=== PATIENT | female | born 1960 | race Caucasian/White ===

== ENCOUNTER 2018-08-09 06:47 | Emergency (ER) | payer MEDICAID ==
[~2018-08-09] VITALS: Ht 157.5 cm; Wt 72.8 kg
[~2018-08-09 06:47] MED LIST: CYCL-1 PO; DICL100G15 TOP; ESCI5TAB10; FERR325T28; HYDR-3964; LORA1TAB; LYR75C; METH-360 PO; OMEP-84; TRAZ-91
[2018-08-09] MEDS ORDERED: ketorolac tromethamine 15mg/ml inj. IV ONE (07:10)
[2018-08-09] MEDS ORDERED: proCHLORperazine 10 MG/2 ml inj IV ONE (07:10)
[2018-08-09] MEDS ORDERED: cyclobenzaprine 10mg tablet PO ONE ×2 (07:10→08:15)
[2018-08-09] MEDS ORDERED: normal saline 1000ML IV soln IVB ONE (07:25)
[2018-08-09] MEDS ORDERED: ketorolac trometh. 30mg/ml inj. IM ONE (07:45)
[2018-08-09] MEDS ORDERED: proCHLORperazine 10 MG/2 ml inj IM ONE (07:45)
[2018-08-09 08:19] VITALS: BP 168/99
== END 2018-08-09 08:24 | disposition home or self-care (01) ==
LOC: ER 06:48
DX: R51 Headache (principal); R11.10 Vomiting, unspecified; M19.90 Unspecified osteoarthritis, unspecified site; G89.29 Other chronic pain; F12.90 Cannabis use, unspecified, uncomplicated; F15.90 Other stimulant use, unspecified, uncomplicated; Z90.710 Acquired absence of both cervix and uterus; Z86.19 Personal history of other infectious and parasitic diseases; Z88.0 Allergy status to penicillin; Z79.899 Other long term (current) drug therapy
CPT/HCPCS: 96372; 99284; J0780; J1885

== ENCOUNTER 2018-11-26 19:34 | Emergency (ER) | payer MEDICAID ==
[~2018-11-26] VITALS: Ht 158.8 cm; Wt 70.0 kg
[2018-11-26 19:45] VITALS: BP 119/68
[2018-11-26] MEDS ORDERED: NAPR-56 PO (20:29)
[2018-11-26] MEDS ORDERED: HYDR-4383 PO (20:29)
[2018-11-26] MEDS ORDERED: naproxen 500mg tablet PO ONE (20:30)
[2018-11-26] MEDS ORDERED: HYDROcodone/acetaminophen 10/325mg tab PO ONE (20:30)
--- NOTE | 2018-11-27 11:27 | NUR ---
[facility] CALLED TO REPORT THAT PT HAS AN EXTENSIVE CURS REPORT AND HAS HAD RX FOR NARCOTIC BEING FILLED BY MULTIPLE MDs
== END 2018-11-26 20:52 | disposition home or self-care (01) ==
LOC: ER 19:35
DX: S52.591A Other fractures of lower end of right radius, initial encounter for closed fracture (principal); S60.221A Contusion of right hand, initial encounter; M19.90 Unspecified osteoarthritis, unspecified site; G89.29 Other chronic pain; F12.90 Cannabis use, unspecified, uncomplicated; F15.90 Other stimulant use, unspecified, uncomplicated; Z90.710 Acquired absence of both cervix and uterus; Z88.0 Allergy status to penicillin; Z79.899 Other long term (current) drug therapy; W19.XXXA Unspecified fall, initial encounter; Y93.89 Activity, other specified; Y92.89 Other specified places as the place of occurrence of the external cause; Y99.9 Unspecified external cause status
CPT/HCPCS: 29125; 73110; 99283

== ENCOUNTER 2018-12-05 13:02 | Outpatient (CLI) | payer MEDICAID ==
[2018-12-05 13:02] VITALS: BP 139/106
[~2018-12-05 13:02] MED LIST changes: +HYDR-4383 PO; +NAPR-56 PO
== END 2018-12-05 13:52 | disposition home or self-care (01) ==
LOC: ORTHO 13:02
PROVIDERS: ATTEND Nurse Practitioner Family
DX: M25.531 Pain in right wrist (principal); F12.90 Cannabis use, unspecified, uncomplicated; F15.90 Other stimulant use, unspecified, uncomplicated; Z90.710 Acquired absence of both cervix and uterus; Z88.0 Allergy status to penicillin; Z79.899 Other long term (current) drug therapy
CPT/HCPCS: A4590; G0463

== ENCOUNTER 2018-12-19 14:33 | Outpatient (CLI) | payer MEDICAID ==
[2018-12-19 14:34] VITALS: BP 119/83
== END 2018-12-19 15:22 | disposition home or self-care (01) ==
LOC: ORTHO 14:33
PROVIDERS: ATTEND Nurse Practitioner Family
DX: S52.591D Other fractures of lower end of right radius, subsequent encounter for closed fracture with routine healing (principal); S52.614D Nondisplaced fracture of right ulna styloid process, subsequent encounter for closed fracture with routine healing; G43.909 Migraine, unspecified, not intractable, without status migrainosus; F12.90 Cannabis use, unspecified, uncomplicated; F32.9 Major depressive disorder, single episode, unspecified; Z88.0 Allergy status to penicillin; W17.89XD Other fall from one level to another, subsequent encounter
CPT/HCPCS: 73110; 99213; A4590

== ENCOUNTER 2019-01-03 15:07 | Outpatient (CLI) | payer MEDICAID ==
[~2019-01-03 15:07] MED LIST changes: -NAPR-56 PO
[2019-01-03 15:13] VITALS: BP 133/73
== END 2019-01-03 15:52 | disposition home or self-care (01) ==
LOC: ORTHO 15:07
PROVIDERS: ATTEND Nurse Practitioner Family
DX: S52.591D Other fractures of lower end of right radius, subsequent encounter for closed fracture with routine healing (principal); S52.611D Displaced fracture of right ulna styloid process, subsequent encounter for closed fracture with routine healing; G43.909 Migraine, unspecified, not intractable, without status migrainosus; M19.90 Unspecified osteoarthritis, unspecified site; F12.90 Cannabis use, unspecified, uncomplicated; F32.9 Major depressive disorder, single episode, unspecified; Z88.0 Allergy status to penicillin; W17.89XD Other fall from one level to another, subsequent encounter
CPT/HCPCS: 73110; 99213; A4590

== ENCOUNTER 2019-01-25 10:07 | Outpatient (CLI) | payer MEDICAID ==
[2019-01-25 09:58] VITALS: BP 135/77
[2019-01-25 10:09] VITALS: BP 110/71
== END 2019-01-25 10:35 | disposition home or self-care (01) ==
LOC: ORTHO 10:07
PROVIDERS: ATTEND Nurse Practitioner Family
DX: S52.591D Other fractures of lower end of right radius, subsequent encounter for closed fracture with routine healing (principal); G43.909 Migraine, unspecified, not intractable, without status migrainosus; F32.9 Major depressive disorder, single episode, unspecified; G89.29 Other chronic pain; Z88.0 Allergy status to penicillin; W17.89XD Other fall from one level to another, subsequent encounter
CPT/HCPCS: 73110; 99213

== ENCOUNTER 2019-02-15 14:07 | Outpatient (CLI) | payer MEDICAID | END 2019-02-15 14:21 | disposition home or self-care (01) | LOC: ORTHO 14:07 | PROVIDERS: ATTEND Orthopaedic Surgery | DX: S52.591D Other fractures of lower end of right radius, subsequent encounter for closed fracture with routine healing (principal); S52.611D Displaced fracture of right ulna styloid process, subsequent encounter for closed fracture with routine healing; Z88.0 Allergy status to penicillin; Z90.710 Acquired absence of both cervix and uterus; X58.XXXD Exposure to other specified factors, subsequent encounter | CPT/HCPCS: 73110; 99213 ==

== ENCOUNTER 2021-01-05 19:57 | Emergency (ER) | payer MEDICAID ==
[~2021-01-05 19:57] MED LIST changes: -ESCI5TAB10; +ESCI5TAB16
== END 2021-01-05 21:33 | disposition left against medical advice (07) ==
LOC: ER 19:58
DX: T75.89XA Other specified effects of external causes, initial encounter (principal); Z53.21 Procedure and treatment not carried out due to patient leaving prior to being seen by health care provider; X58.XXXA Exposure to other specified factors, initial encounter; Y93.89 Activity, other specified; Y92.89 Other specified places as the place of occurrence of the external cause; Y99.8 Other external cause status

== ENCOUNTER 2022-10-07 07:00 | Emergency (ER) | payer MEDICAID ==
[~2022-10-07] VITALS: Ht 160 cm; Wt 69.0 kg
[2022-10-07] MEDS ORDERED: LORazepam 2 mg/ml vial IV ONE (07:20)
[2022-10-07 07:30] LABS: BASOPHILS % (AUTO) 0.5 % (0-1); EOSINOPHILS # (AUTO) 0.2 X10'3 (0-0.9); EOSINOPHILS % (AUTO) 2.6 % (0-6); HEMATOCRIT 41.9 % (35.0-45.0); HEMOGLOBIN 14.3 g/dl (12.0-16.0); LYMPHOCYTES # (AUTO) 2.9 X10'3 (1.1-4.8); LYMPHOCYTES % (AUTO) 35.4 % (21-51); MEAN CORPUSCULAR HEMOGLOBIN 32.3 PG (27.0-31.0); MEAN CORPUSCULAR HGB CONC 34.1 g/dL (33.0-36.5); MEAN CORPUSCULAR VOLUME 94.9 FL (78-98); MEAN PLATELET VOLUME 8.4 FL (7.4-10.4); MONOCYTES # (AUTO) 0.6 X10'3 (0-0.9); MONOCYTES % (AUTO) 7.3 % (2-12); NEUTROPHILS # (AUTO) 4.4 X10'3 (1.8-7.7); NEUTROPHILS % (AUTO) 54.2 % (42-75); PLATELET COUNT 194 X10'3 (140-440); RED BLOOD COUNT 4.42 X10'6 (4.20-5.60); RED CELL DISTRIBUTION WIDTH 13.8 % (11.5-14.5); WHITE BLOOD COUNT 8.2 X10'3 (4.5-11.0)
[2022-10-07] MEDS ORDERED: LORazepam 2 mg/ml vial IM ONE ×2 (07:55)
--- NOTE | 2022-10-07 08:19 | NUR ---
UNABLE TO ACHEVE IV ACCESS. MD AWARE ORDER FOR IV ATIVAN CHANGED TO IM.
[2022-10-07 08:20] LABS: ALANINE AMINOTRANSFERASE 18 U/L (12-78); GLUCOSE 106 MG/DL (70-104)
[2022-10-07 08:31] LABS: ALBUMIN 4.2 G/DL (3.4-5.0); ALBUMIN/GLOBULIN RATIO 1.1 (1.1-1.5); ALKALINE PHOSPHATASE 67 IU/L (46-116); ANION GAP 14 (8-16); ASPARTATE AMINO TRANSFERASE 22 U/L (10-37); BILIRUBIN,TOTAL 0.8 MG/DL (0.1-1.0); BLOOD UREA NITROGEN 23 MG/DL (7-18); CALCIUM 9.8 MG/DL (8.5-10.1); CHLORIDE 103 MMOL/L (99-107); CREATININE 0.82 MG/DL (0.40-0.90); POTASSIUM 3.7 MMOL/L (3.5-5.1); SODIUM 140 MMOL/L (135-145); TOTAL CARBON DIOXIDE 23.5 MMOL/L (24-32); TOTAL PROTEIN 8.2 G/DL (6.4-8.2); eGFR 71 ML/MIN
[2022-10-07 09:09] VITALS: BP 155/89
== END 2022-10-07 10:03 | disposition home or self-care (01) ==
LOC: ER 07:00
DX: F41.9 Anxiety disorder, unspecified (principal); R07.9 Chest pain, unspecified; D64.9 Anemia, unspecified; G89.29 Other chronic pain; F32.A Depression, unspecified; F12.10 Cannabis abuse, uncomplicated; Z90.49 Acquired absence of other specified parts of digestive tract
CPT/HCPCS: 36415; 71045; 80053; 83880; 84484; 85025; 93005; 96372; 99285; J2060

== ENCOUNTER 2023-03-29 18:41 | Emergency (ER) | payer MEDICAID ==
[~2023-03-29] VITALS: Ht 157.5 cm; Wt 148.0 kg
[2023-03-29 19:16] LABS: BASOPHILS % (AUTO) 0.4 % (0-1); EOSINOPHILS # (AUTO) 0.3 X10'3 (0-0.9); HEMATOCRIT 37.2 % (35.0-45.0); HEMOGLOBIN 12.9 g/dl (12.0-16.0); LYMPHOCYTES # (AUTO) 4.4 X10'3 (1.1-4.8); LYMPHOCYTES % (AUTO) 44.4 % (21-51); MEAN CORPUSCULAR HEMOGLOBIN 31.7 PG (27.0-31.0); MEAN CORPUSCULAR HGB CONC 34.8 g/dL (33.0-36.5); MEAN CORPUSCULAR VOLUME 91.2 FL (78-98); MONOCYTES # (AUTO) 0.9 X10'3 (0-0.9); MONOCYTES % (AUTO) 9.1 % (2-12); NEUTROPHILS # (AUTO) 4.3 X10'3 (1.8-7.7); NEUTROPHILS % (AUTO) 43.1 % (42-75); PLATELET COUNT 187 X10'3 (140-440); RED BLOOD COUNT 4.08 X10'6 (4.20-5.60); RED CELL DISTRIBUTION WIDTH 13.7 % (11.5-14.5)
[2023-03-29 19:39] LABS: ALANINE AMINOTRANSFERASE 26 U/L (12-78); ALBUMIN 4.5 G/DL (3.4-5.0); ALBUMIN/GLOBULIN RATIO 1.3 (1.1-1.5); ALKALINE PHOSPHATASE 71 IU/L (46-116); ANION GAP 7 (8-16); ASPARTATE AMINO TRANSFERASE 23 U/L (10-37); BILIRUBIN,TOTAL 0.5 MG/DL (0.1-1.0); BLOOD UREA NITROGEN 34 MG/DL (7-18); BUN/CREATININE RATIO 32.1 (10.0-20.0); CALCIUM 9.6 MG/DL (8.5-10.1); CHLORIDE 103 MMOL/L (99-107); CREATININE 1.06 MG/DL (0.40-0.90); GLUCOSE 112 MG/DL (70-104); POTASSIUM 4.5 MMOL/L (3.5-5.1); SODIUM 141 MMOL/L (135-145); TOTAL CARBON DIOXIDE 31.3 MMOL/L (24-32); eGFR 53 ML/MIN
[2023-03-29 19:47] LABS: MAGNESIUM 1.9 MG/DL (1.5-2.4)
[2023-03-29 21:30] VITALS: BP 134/78
[2023-03-29] MEDS ORDERED: SULF1TAB49 PO (22:13)
== END 2023-03-29 22:29 | disposition home or self-care (01) ==
LOC: ER 18:42
DX: S60.221A Contusion of right hand, initial encounter (principal); R07.89 Other chest pain; R19.7 Diarrhea, unspecified; M19.90 Unspecified osteoarthritis, unspecified site; G89.29 Other chronic pain; F41.9 Anxiety disorder, unspecified; F32.9 Major depressive disorder, single episode, unspecified; Z86.19 Personal history of other infectious and parasitic diseases; Z79.899 Other long term (current) drug therapy; Z88.0 Allergy status to penicillin; W18.39XA Other fall on same level, initial encounter; Y93.89 Activity, other specified; Y92.89 Other specified places as the place of occurrence of the external cause; Y99.8 Other external cause status
CPT/HCPCS: 36415; 71045; 80053; 83735; 83880; 84484; 85025; 93005; 99285

== ENCOUNTER 2023-04-05 13:31 | Emergency (ER) | payer MEDICAID ==
[~2023-04-05] VITALS: Ht 157.5 cm; Wt 69.0 kg
[2023-04-05 13:41] VITALS: BP 106/72
[2023-04-05 15:12] LABS: BASOPHILS # (AUTO) 0.1 X10'3 (0-0.2); BASOPHILS % (AUTO) 0.6 % (0-1); EOSINOPHILS # (AUTO) 0.2 X10'3 (0-0.9); EOSINOPHILS % (AUTO) 1.7 % (0-6); HEMATOCRIT 41.3 % (35.0-45.0); HEMOGLOBIN 13.8 g/dl (12.0-16.0); LYMPHOCYTES # (AUTO) 3.6 X10'3 (1.1-4.8); LYMPHOCYTES % (AUTO) 38.1 % (21-51); MEAN CORPUSCULAR HEMOGLOBIN 31.1 PG (27.0-31.0); MEAN CORPUSCULAR HGB CONC 33.3 g/dL (33.0-36.5); MEAN CORPUSCULAR VOLUME 93.3 FL (78-98); MEAN PLATELET VOLUME 9.3 FL (7.4-10.4); MONOCYTES # (AUTO) 0.8 X10'3 (0-0.9); MONOCYTES % (AUTO) 8.7 % (2-12); NEUTROPHILS # (AUTO) 4.8 X10'3 (1.8-7.7); NEUTROPHILS % (AUTO) 50.9 % (42-75); PLATELET COUNT 202 X10'3 (140-440); RED BLOOD COUNT 4.43 X10'6 (4.20-5.60); RED CELL DISTRIBUTION WIDTH 14.4 % (11.5-14.5); WHITE BLOOD COUNT 9.5 X10'3 (4.5-11.0)
[2023-04-05 15:18] LABS: ALANINE AMINOTRANSFERASE 25 U/L (12-78); ALBUMIN 4.5 G/DL (3.4-5.0); ALBUMIN/GLOBULIN RATIO 1.3 (1.1-1.5); ALKALINE PHOSPHATASE 81 IU/L (46-116); ANION GAP 3 (8-16); ASPARTATE AMINO TRANSFERASE 23 U/L (10-37); BILIRUBIN,TOTAL 0.3 MG/DL (0.1-1.0); BLOOD UREA NITROGEN 26 MG/DL (7-18); BUN/CREATININE RATIO 18.2 (10.0-20.0); CALCIUM 9.6 MG/DL (8.5-10.1); CHLORIDE 102 MMOL/L (99-107); CREATININE 1.43 MG/DL (0.40-0.90); GLUCOSE 104 MG/DL (70-104); POTASSIUM 4.2 MMOL/L (3.5-5.1); SODIUM 137 MMOL/L (135-145); TOTAL CARBON DIOXIDE 32.1 MMOL/L (24-32); eGFR 37 ML/MIN
[2023-04-05] MEDS ORDERED: normal saline 1000ml 1,000 ML IV ONE (15:30)
== END 2023-04-05 16:21 | disposition left against medical advice (07) ==
LOC: ER 13:32
DX: R53.83 Other fatigue (principal); R11.2 Nausea with vomiting, unspecified; F41.9 Anxiety disorder, unspecified; F12.10 Cannabis abuse, uncomplicated; Z88.0 Allergy status to penicillin; Z79.899 Other long term (current) drug therapy
CPT/HCPCS: 36415; 80053; 83735; 83880; 84484; 85025; 93005; 99281; 99284

== ENCOUNTER 2023-06-08 14:03 | Emergency (ER) | payer MEDICAID ==
[~2023-06-08] VITALS: Ht 157.5 cm; Wt 67.3 kg
--- NOTE | 2023-06-08 14:10 | NUR ---
not in lobby.
--- NOTE | 2023-06-08 14:17 | NUR ---
not in lobby
[2023-06-08 14:24] LABS: BASOPHILS % (AUTO) 0.5 % (0-1); EOSINOPHILS # (AUTO) 0.1 X10'3 (0-0.9); EOSINOPHILS % (AUTO) 0.8 % (0-6); HEMATOCRIT 41.4 % (35.0-45.0); HEMOGLOBIN 14.1 g/dl (12.0-16.0); LYMPHOCYTES % (AUTO) 23.3 % (21-51); MEAN CORPUSCULAR HGB CONC 34.1 g/dL (33.0-36.5); MEAN PLATELET VOLUME 9.6 FL (7.4-10.4); MONOCYTES # (AUTO) 0.5 X10'3 (0-0.9); MONOCYTES % (AUTO) 5.7 % (2-12); NEUTROPHILS # (AUTO) 5.8 X10'3 (1.8-7.7); NEUTROPHILS % (AUTO) 69.7 % (42-75); PLATELET COUNT 195 X10'3 (140-440); RED BLOOD COUNT 4.41 X10'6 (4.20-5.60); RED CELL DISTRIBUTION WIDTH 14.2 % (11.5-14.5); WHITE BLOOD COUNT 8.4 X10'3 (4.5-11.0)
[2023-06-08 14:54] LABS: ALANINE AMINOTRANSFERASE 21 U/L (12-78); ALBUMIN 4.7 G/DL (3.4-5.0); ALBUMIN/GLOBULIN RATIO 1.2 (1.1-1.5); ALKALINE PHOSPHATASE 63 IU/L (46-116); ANION GAP 11 (8-16); ASPARTATE AMINO TRANSFERASE 20 U/L (10-37); BILIRUBIN,TOTAL 0.9 MG/DL (0.1-1.0); BLOOD UREA NITROGEN 20 MG/DL (7-18); BUN/CREATININE RATIO 24.7 (10.0-20.0); CALCIUM 10.1 MG/DL (8.5-10.1); CHLORIDE 106 MMOL/L (99-107); CREATININE 0.81 MG/DL (0.40-0.90); GLUCOSE 109 MG/DL (70-104); SODIUM 144 MMOL/L (135-145); TOTAL CARBON DIOXIDE 26.9 MMOL/L (24-32); TOTAL PROTEIN 8.6 G/DL (6.4-8.2); eGFR 72 ML/MIN
[2023-06-08 16:08] VITALS: BP 201/87; PULSE 76; O2SAT 100
== END 2023-06-08 20:28 | disposition left against medical advice (07) ==
LOC: ER 14:04
DX: R07.89 Other chest pain (principal); Z53.21 Procedure and treatment not carried out due to patient leaving prior to being seen by health care provider
CPT/HCPCS: 36415; 80053; 83880; 84484; 85025; 93005; 99281